=== PATIENT | female | born 1985 | race Two or more races ===

== ENCOUNTER 2021-05-29 13:46 | Outpatient (CLI) | payer OTHER | END 2021-05-29 14:11 | disposition home or self-care (01) | LOC: LAB 13:46 | PROVIDERS: ATTEND Internal Medicine Hematology & Oncology | DX: D68.9 Coagulation defect, unspecified (principal) ==

== ENCOUNTER 2021-07-22 11:15 | Emergency (ER) | payer OTHER ==
[~2021-07-22] VITALS: Ht 170.2 cm; Wt 68.0 kg
== END 2021-07-22 13:01 | disposition home or self-care (01) ==
LOC: ER 11:15
DX: S92.351A Displaced fracture of fifth metatarsal bone, right foot, initial encounter for closed fracture (principal)

== ENCOUNTER 2024-01-26 14:07 | Emergency (ER) | payer OTHER ==
[~2024-01-26] VITALS: Ht 167.6 cm; Wt 63.5 kg
[2024-01-26 14:41] VITALS: BP 135/97; O2SAT 100
[2024-01-26] MEDS ORDERED: HYOSCYAMINE SULFATE 0.125 MG TAB.SUBL SL STA (15:36)
[2024-01-26] MEDS ORDERED: FAMOtidine 2 MG/ML REDILUIDO IV STA (15:38)
[2024-01-26] MEDS ORDERED: ORPHENADRINE CITRATE 30 MG/ML AMPUL IM STA (15:40)
[2024-01-26] MEDS ORDERED: DEXTROSE 5 %-0.45 % SOD CHLORD 500 ML IV SCH (16:00)
[2024-01-26 17:26] LABS: HEMATOCRIT 32.1 % (36.0-45.00); MEAN CELL VOLUME 69.2 fL (80.00-100.00); MEAN CORPUSCULAR HEMOGLOBIN 21.6 pg (27.00-32.0); MEAN CORPUSCULAR HGB CONC 31.2 g/dl (32.0-36.0); PLATELET COUNT 406 K/uL (150-450); RED BLOOD COUNT 4.64 M/uL (4.00-6.00); RED CELL DISTRIBUTION WIDTH 18.4 % (11.5-14.5)
[2024-01-26 17:41] LABS: CALCIUM 8.8 mg/dL (8.5-10.1); CREATININE SERUM 0.66 mg/dL (0.55-1.02); GFR 101.33; POTASSIUM 3.57 mEq/L (3.5-5.1)
[2024-01-26 17:45] LABS: ALKALINE PHOSPHATASE 51 U/L (50-136); ALT/SGPT 15 U/L (12-78); AST/SGOT 13 U/L (15-37); BILIRUBIN TOTAL 0.35 mg/dL (0.3-1.2); BILIRUBIN,CONJUGATED < 0.10 mg/dL (0.0-0.2); BILIRUBIN,UNCONJUGATED 0.25 mg/dL (0.0-0.6); TOTAL PROTEIN 7.9 gm/dL (6.4-8.2)
[2024-01-26] MEDS ORDERED: NORFLEX100MG PO (19:55)
== END 2024-01-26 20:24 | disposition home or self-care (01) ==
LOC: ER 14:07
DX: D68.00 Von Willebrand disease, unspecified (principal)